=== PATIENT | male | born 1985 | race Caucasian/White ===

== ENCOUNTER 2017-03-20 15:00 | Emergency (ER) | payer SELFPAY ==
[~2017-03-20] VITALS: Ht 182.9 cm; Wt 68.0 kg
[2017-03-20 16:00] VITALS: BP 140/78
--- NOTE | 2017-03-20 17:20 | Emergency Room Report ---
History of Present Illness General Chief Complaint: Altered Level of Consciousness Source: Patient, EMS Present Illness HPI This patient is brought in by EMS. He is brought in from a [employer]. He was passed out with vomiting all over himself in the restroom. He has a history of drug abuse. He states that he has completely lost control of his life. He was altered consistent with drug intoxication per EMS. The patient himself has no specific complaints. He believes that he has some sort of parasite on his legs. I was able to contact his mother who lives in [place]. She reports that he has a long history of drug abuse and she is trying to help him but he is not amenable to the rehabilitation. She would like him to get into drug rehabilitation. He does live on a small sailboat in [facility]. His parents bought the boat so he could there. Mom states that he did give him a [employer] give card to buy some essential items to live. He is well- known to [facility]. Allergies: Coded Allergies: UNABLE TO ASSESS (Unverified , 03/20/17) Patient History Past Medical History: see triage record, other - Pedal edema, Hx of Lyme disease Social History: Reports: drug use Reviewed Nursing Documentation: PMH: Agreed, PSxH: Agreed Review of Systems All Other Systems: negative except mentioned in HPI Physical Exam Vital Signs Date Time Temp Pulse Resp B/P (MAP) Pulse Ox O2 Delivery O2 Flow Rate FiO2 03/20/17 14:57 97.9 104 16 142/80 100 Room Air Sp02 EP Interpretation: reviewed, normal General Appearance: no apparent distress, alert, GCS 15, non-toxic, other - Discheveled. Poor hygiene, +emesis all over clothing. Head: normocephalic, atraumatic Eyes: bilateral eye normal inspection, bilateral eye PERRL ENT: hearing grossly normal, normal pharynx, no angioedema, normal voice Neck: full range of motion, supple/symm/no masses Respiratory: chest non-tender, lungs clear, normal breath sounds, speaking full sentences Cardiovascular #1: tachycardia, edema - BLE edema and erythema feet to mid [place]. Gastrointestinal: normal bowel sounds, non tender, soft, non-distended, no guarding, no rebound Rectal: deferred Musculoskeletal: back normal, gait/station normal, normal range of motion, swelling - BLE edema Neurologic: alert, oriented x3, responsive, motor strength/tone normal, sensory intact, speech normal Psychiatric: judgement/insight normal, memory normal, mood/affect normal, no suicidal/homicidal ideation Skin: warm/dry, well hydrated, other - scattered papular lesions. Medical Decision Making Diagnostic Impression: Primary Impression: Drug abuse and dependence ER Course This patient admits to ongoing drug use and drug abuse. His mother reports that he struck [employer] methamphetamine. He states that he has been walking for the past few days and interacting with a homeless people. He is articulate and able to give an appropriate history. He is able to give his address. He declined to give his name because he states he does not want a medical bill because he has so many and it is burning has credit. He states he has no money. His family lives in [place]. His mom gave him a [employer] give card. He admits that he is continuing to use drugs. He hit leg edema often and states that he usually has to elevate his legs to make it go away. He states he's been walking for the past 3 days. His skin exam is consistent with a folliculitis. He may also have scabies based on the excoriations. He also has findings on exam consistent with IV drug abuse. He has a home and does not want any drug rehabilitation or help from social work. I did discuss the case with his mother they state she has attempted to help him. She is at a loss because he continues to do drugs. She is frustrated. She did give him a [employer] give card and bought a sailboat that is in the [facility]. Unfortunately, the patient refuses to help himself and is on drugs. At this time, there is nothing I can do to help him. He is articulate and able to ambulate and demanded to leave. He eloped without his discharge paperwork. Last Vital Signs Date Time Temp Pulse Resp B/P (MAP) Pulse Ox O2 Delivery O2 Flow Rate FiO2 03/20/17 14:57 97.9 104 16 142/80 100 Room Air Disposition: ELOPED Condition: Stable Referrals: NOT CHOSEN DAKOTAH/,REFERRING (PCP) CORA CABALLERO D.O. Mar 20, 2017 17:20
[2017-03-20 17:30] VITALS: BP 140/78
== END 2017-03-20 17:30 | disposition left against medical advice (07) ==
LOC: EDBD 15:00 → EMR 16:20
DX: F19.10 Other psychoactive substance abuse, uncomplicated (principal)
CPT/HCPCS: 99282